=== PATIENT | male | born 1985 | race Caucasian/White ===

== ENCOUNTER 2020-12-19 11:17 | Emergency (ER) | payer BC, SELFPAY ==
--- NOTE | ~2020-12-19 | XR_ITS ---
EXAMINATION: XR foot LT min 3V DATE: 12/19/2020 11:36 INDICATION: Transient injury to the medial left foot TECHNIQUE: Dorsoplantar, two oblique and lateral views of the left foot were obtained. COMPARISON: None. FINDINGS: Skin laceration medial to the neck of the first metatarsal. Bone alignment is normal. No fracture. Oly int spaces are normal. No radiopaque foreign bodies. IMPRESSION: 1. No osseous abnormality or radiopaque foreign bodies. Reviewed, dictated and finalized at location A.
[2020-12-19 11:24] VITALS: BP 138/77; PULSE 80; RESP 16; TEMP 36.2; O2SAT 100
[2020-12-19] MEDS: TETANUS,DIPHTHERIA,AC PERTUSSIS ADULT (0.5 ML) BOOSTRIX IM (13:17)
--- NOTE | 2020-12-19 13:25 | ED.WOUNDLAC ---
HPI - Wound/Laceration General Chief Complaint: Wound/Laceration Stated Complaint: L foot vs Chain Saw Time Seen by Provider: 12/19/20 13:03 Source: patient and RN notes reviewed Mode of arrival: ambulatory Limitations: no limitations History of Present Illness HPI narrative: This is a 35 year old male who presents for evaluation of left foot laceration. Patient states his chainsaw kicked back and hit his left foot. He was wearing shoes so it went through the shoes causing a laceration. He took Aleve prior to arrival so he has minimal pain. He denies numbness or tingling. He is not up to date on his tetanus. He denies any medical problems. Related Data Home Medications Medication Instructions Recorded Confirmed No Home Medications 12/19/20 12/19/20 Allergies Allergy/AdvReac Type Severity Reaction Status Date / Time No Known Allergies Allergy Verified 12/19/20 12:23 Review of Systems Review of Systems: All systems reviewed & are unremarkable except as noted in HPI and below PMFSH Past Medical History Medical History (Updated 12/20/20 @ 00:00 by Background Daemon) Patient denies medical problems Exam Const: General: no acute distress and alert Orientation/consciousness: patient oriented x3 Eyes: EOM: EOMs intact bilaterally Resp: Effort & Inspection: normal respiratory effort Extrem: Other: left foot with medial laceration with irregular edges, minimal bleeding approximately 4 cm in length Psych: Mental Status: mental status grossly normal Affect: normal affect Course Vital Signs Vital signs: Vital Signs Temperature 97.2 F L 12/19/20 11:24 Pulse Rate 80 12/19/20 11:24 Respiratory Rate 16 12/19/20 11:24 Blood Pressure 138/77 12/19/20 11:24 Pulse Oximetry 100 12/19/20 11:24 Temperature 97.2 F L 12/19/20 11:24 Pulse Rate 78 12/19/20 14:42 Respiratory Rate 18 12/19/20 14:42 Blood Pressure 138/72 12/19/20 14:42 Pulse Oximetry 99 12/19/20 14:42 Procedures Laceration Laceration 1: Date: 12/19/20 Time: 14:33 Site: lower extremity (left foot) Side (If applicable): left Size (cm): 4 Description: flap and irregular Depth: simple, single layer Local Anesthetic: lidocaine 1% ====== Skin Level ====== Skin layer closed with: prolene Size (cm): 4-0 Number of sutures: 6 Technique: simple, interrupted (2) and running (4) ====== Subcutaneous Layer ====== ====== Muscle Layer ====== ====== Tendon Layer ====== MDM - Wound/Laceration Imaging Data Radiologist's impression: ITS Impressions Foot X-Ray 12/19/20 11:47 IMPRESSION: 1. No osseous abnormality or radiopaque foreign bodies. Discharge Plan Discharge Clinical Impression: Laceration of left foot excluding toes Patient Disposition: Home, Self-Care Condition: Stable Instructions: Care For Your Stitches (ED), Laceration (ED) Additional Instructions: Today you had a foot laceration repair.. Please clean wound daily and keep covered when you are having to be outside home and walk around. Keep clean. Watch for signs of infection. Your stitches will need to be removed in 10 days. Prescriptions: No Action No Home Medications RF: 0 Follow-up/Referrals: PHYSICIAN NOT ON STAFF,NONSTAFF [Primary Care Provider] -
[2020-12-19 14:42] VITALS: BP 138/72; PULSE 78; RESP 18; O2SAT 99
== END 2020-12-19 14:44 | disposition home or self-care (01) ==
PROVIDERS: Emergency Provider General Practice
DX: S91.312A Laceration without foreign body, left foot, initial encounter (principal); W29.3XXA Contact with powered garden and outdoor hand tools and machinery, initial encounter; Z23 Encounter for immunization
CPT/HCPCS: 12002; 73630; 90471; 90715; 99283